=== PATIENT | female | born 1950 | race Caucasian/White ===

== ENCOUNTER 2023-09-12 12:09 | Outpatient (RCR) | payer MEDICARE, SELFPAY | END 2023-09-12 23:59 | disposition home or self-care (01) | LOC: RST 12:09 | PROVIDERS: ATTENDING PHYSICIAN Physical Medicine & Rehabilitation; FAMILY PHYSICIAN Family Medicine | DX: D32.0 Benign neoplasm of cerebral meninges (principal); Z73.6 Limitation of activities due to disability; R41.841 Cognitive communication deficit; R47.1 Dysarthria and anarthria | CPT/HCPCS: 97010; 97035; 97110; 97129; 97130; 97140 ==

== ENCOUNTER 2023-11-02 13:55 | Emergency (ER) | payer MEDICARE, SELFPAY ==
[2023-11-02 13:57] VITALS: BP 141/61
[2023-11-02 14:06] VITALS: BMI 32.4
--- NOTE | 2023-11-02 14:06 | ED.GENMED ---
History of Present Illness
General
Chief Complaint: Head Injury
Source: patient
Exam Limitations: none
Time Seen by Provider: 11/02/23 14:01
Travel History
Have you had any contact with someone who has COVID-19?: No
Do you have any symptoms of coronavirus? Fever > 100 degrees, chills, cough, shortness of breath, sore throat, loss of taste or smell, muscle aches, or headache?: No
History of Present Illness
History of Present Illness:
73-year-old female on Eliquis for atrial fibrillation presents for head injury. She hit her head on a desk. She denies neck pain. No loss of conscious. She notes a slight headache. No vision change. No other complaints at this time
Past History
Past History
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
ED Past Surgical History: Cardiac (Right carotid endarterectomy), Orthopedic (R and L total knee replacements. L and right hip replacement; microdiscectomy 2007, left arm repair, Laminectomy), Urological (Stent in Kidney) and Other (Meningioma
resection )
Patient has exhibited threatening behavior?: No
PSI?: No
Social History
Tobacco: Non-smoker
Alcohol: None
Drug: None
Personal:
Living: with family
Employment: Retired
Family History
Family History: Other
Phy Exam
Physical Exam
Physical Exam:
General: Well-appearing female no respiratory distress
HEENT: Normocephalic pupils equal round reactive to lightPupils equal round reactive to light extraocular's are intact no Mathew sign or raccoon eyes.
Neurologic: Normal gait alert and oriented no facial asymmetry conversing appropriately
Musculoskeletal exam: The spine is nontender to palpation
Course
Orders/Labs/Results
Orders:
Orders
11/02/23 14:06
CT Head W/o Iv Contrast Urgent
Comment:
Reason For Exam: head injury, on eliquis
Vital Signs
Initial and Last Documented VS:
Initial Vital Signs
Temp Pulse Resp BP Pulse Ox
97.8 F 50 18 141/61 98
11/02/23 13:57 11/02/23 13:57 11/02/23 13:57 11/02/23 13:57 11/02/23 13:57
Last Documented Vital Signs
Temp Pulse Resp BP Pulse Ox
97.8 F 83 18 149/73 98
11/02/23 13:57 11/02/23 15:33 11/02/23 15:33 11/02/23 15:33 11/02/23 15:33
MDM/Problems Addressed
Differential Diagnosis Includes:
Head injury on Eliquis. Patient urine for bleeding. Explained to her that this is a low likelihood and mechanism is not severe however given the headache will order CT of the head
*Critical Care Note
Total Time (30-74mins, 75-104mins- exclusive of procedures): Not Applicable
Update Note
Update Note:
CT of the head reviewed personally and reviewed by radiology. No acute finding noted. Patient reassured. Stable for discharge.
ED Attending Note
-
Portions of this chart may have been created with voice recognition software.� Occasional wrong word or��sound alike� substitutions may have occurred due to the inherent limitations of voice recognition software.
Discharge Plan
Departure
Patient Disposition: Home (Routine Discharge)
Date of Disposition: 11/02/23
Time of Disposition: 15:43
Patient with high blood pressure during this ER visit?: No
Discharge Problem:
Contusion
Instructions: Contusion (DC)
Prescriptions:
No Action
Eliquis 5 MG tablet
5 mg PO BID Qty: 0 0RF
gabapentin 400 mg capsule
900 mg PO DAILY@1999
metoclopramide HCl [Reglan] 5 mg tablet
5 mg PO TID PRN (Reason: nausea and vomiting) Qty: 45 0RF
atorvastatin 80 mg Tablet
80 mg PO HS
cyanocobalamin (vitamin B-12) 1,000 mcg Tablet
1,000 mcg PO DAILY
levothyroxine 200 mcg Tablet
200 mcg PO DAILY
magnesium oxide 250 mg magnesium Tablet
250 mg PO DAILY PRN (Reason: cramps)
sertraline 100 mg Tablet
150 mg PO DAILY
acetaminophen 325 MG tablet
650 mg PO Q6HPRN PRN (Reason: mild pain or temp >/= 100.4 F)
losartan 100 mg Tablet
100 mg PO NOON Qty: 30 0RF
metoprolol tartrate 25 mg Tablet
25 mg PO TID Qty: 90 0RF
amlodipine 5 mg tablet
5 mg PO DAILY Qty: 30 0RF
pantoprazole 20 mg Tablet,Delayed Release (Dr/Ec)
20 mg PO DAILY Qty: 30 0RF
multivitamin with folic acid [Tab-A-Darci] 400 mcg Tablet
1 tab PO DAILY Qty: 30 0RF
Referrals:
Baldo Ashley MD [Family Provider] -
Activity Restrictions/Additional Instructions:
You may use Tylenol if needed for pain. Return if needed otherwise follow-up with family doctor
Interventions
Interventions:
*Risk Screen - Suicide Last Done: 11/02/23 14:05
*General Assessment Last Done: 11/02/23 14:05
*Neglect/Abuse Screening Last Done: 11/02/23 14:05
*ED COVID-19 Vaccine History Last Done: 11/02/23 13:57
ED- Neurological Assessment Last Done: 11/02/23 14:07
ED-Skin Assessment Last Done: 11/02/23 14:07
[2023-11-02 15:33] VITALS: BP 149/73
== END 2023-11-02 16:22 | disposition home or self-care (01) ==
LOC: EMR 13:55
PROVIDERS: EMERGENCY PHYSICIAN Emergency Medicine; FAMILY PHYSICIAN Family Medicine
DX: S00.93XA Contusion of unspecified part of head, initial encounter (principal); W22.8XXA Striking against or struck by other objects, initial encounter; Z79.01 Long term (current) use of anticoagulants
CPT/HCPCS: 99284; 70450

== ENCOUNTER → 2023-11-27 11:11 | Outpatient (REF) | payer MEDICARE, SELFPAY | LOC: DHCBC HW 11:11 | PROVIDERS: ATTENDING PHYSICIAN Internal Medicine Cardiovascular Disease; FAMILY PHYSICIAN Family Medicine | DX: R42 Dizziness and giddiness (principal); I48.0 Paroxysmal atrial fibrillation; I10 Essential (primary) hypertension; R00.1 Bradycardia, unspecified | CPT/HCPCS: 93306 ==

== ENCOUNTER → 2023-11-30 13:07 | Outpatient (REF) | payer MEDICARE, SELFPAY | LOC: WDC 13:07 | PROVIDERS: ATTENDING PHYSICIAN Family Medicine | DX: Z12.31 Encounter for screening mammogram for malignant neoplasm of breast (principal) | CPT/HCPCS: 77063; 77067 ==

== ENCOUNTER → 2023-12-25 10:45 | Outpatient (REF) | payer MEDICARE, SELFPAY | LOC: PAVMRI 10:45 | PROVIDERS: ATTENDING PHYSICIAN Neurological Surgery; FAMILY PHYSICIAN Family Medicine | DX: D32.9 Benign neoplasm of meninges, unspecified (principal) | CPT/HCPCS: 70553; A9575 ==

== ENCOUNTER → 2024-01-16 09:27 | Outpatient (REF) | payer MEDICARE, SELFPAY | LOC: RCS 09:27 | PROVIDERS: ATTENDING PHYSICIAN Internal Medicine Cardiovascular Disease; FAMILY PHYSICIAN Family Medicine | DX: R42 Dizziness and giddiness (principal); I48.0 Paroxysmal atrial fibrillation; R00.1 Bradycardia, unspecified | CPT/HCPCS: 93225; 93226 ==

== ENCOUNTER 2024-03-10 15:01 | Outpatient (RCR) | payer MEDICARE, SELFPAY | END 2024-03-10 23:59 | disposition home or self-care (01) | LOC: RPT 15:01 | PROVIDERS: ATTENDING PHYSICIAN Family Medicine | DX: R29.898 Other symptoms and signs involving the musculoskeletal system (principal) | CPT/HCPCS: 97110; 97163 ==

== ENCOUNTER 2024-04-08 11:04 | Outpatient (RCR) | payer MEDICARE, SELFPAY | END 2024-04-08 23:59 | disposition home or self-care (01) | LOC: RPT 11:04 | PROVIDERS: ATTENDING PHYSICIAN Family Medicine | DX: R29.898 Other symptoms and signs involving the musculoskeletal system (principal); Z73.6 Limitation of activities due to disability | CPT/HCPCS: 97110; 97112 ==

== ENCOUNTER 2024-04-11 03:34 | Emergency (ER) | payer MEDICARE, SELFPAY ==
[2024-04-11 03:36] VITALS: BP 154/73
[2024-04-11 04:36] VITALS: BP 119/74
--- NOTE | 2024-04-11 04:41 | ED.GENMED ---
History of Present Illness
General
Chief Complaint: Fall
Source: patient
Exam Limitations: none
Time Seen by Provider: 04/11/24 04:41
Nursing documentation reviewed up to this point in time: agreed with
History of Present Illness
History of Present Illness:
Pleasant 73-year-old female presents after a fall. She fell and hit her head. She is on Eliquis for atrial fibrillation. She denies C-spine tenderness. Reports no other complaints. She states that she slipped and fell. Patient has a past
medical history significant for brain tumor. She had a partial craniotomy years ago. She does have a mild headache, which is no different from her typical headaches.
Past History
Past History
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
ED Past Surgical History: Cardiac (Right carotid endarterectomy), Orthopedic (R and L total knee replacements. L and right hip replacement; microdiscectomy 2007, left arm repair, Laminectomy), Urological (Stent in Kidney) and Other (Meningioma
resection )
Patient has exhibited threatening behavior?: No
PSI?: No
Social History
Tobacco: Non-smoker
Alcohol: None
Drug: None
Personal:
Living: with family
Employment: Retired
Family History
Family History: Other
Review of Systems
Review of Systems
Allergies reviewed?: Yes
Other source history: family
All Other Systems: ROS reviewed and negative except as documented in HPI and ROS
Neurological: Reports headache
Phy Exam
General Physical Exam
General Presentation: well appearing and no apparent distress
General Skin: warm and dry
General Habitus: normal
General Mental: alert and anxious
General Hydration: appears well hydrated
ENT Exam
ENT Exam: EOMI, pharynx normal, neck supple and normocephalic
Eye Exam
Eye Exam: PERRL, cornea clear and conjunctiva normal
Cardiovascular Exam
Cardiovascular Exam: irregularly irregular
Pulmonary Exam
Pulmonary Exam: lungs clear, no respiratory distress, no rales, no crackles, no rhonchi, no stridor, no wheezing and no cough
Gastrointestinal Exam
Gastrointestinal Exam: normal bowel sounds and non tender
Neurological Exam
Neurological Exam: alert, oriented x3, no motor deficits and speech normal
Musculoskeletal Exam
Musculoskeletal Exam: full ROM and no edema
Skin Exam
Skin Exam: normal color, warm/dry, no rash and no petechia
Psychiatric Exam
Psychiatric Exam: normal mood/affect
Course
Orders/Labs/Results
Orders:
Orders
04/11/24 03:[address] [CT Head W/o Iv Contrast] Urgent
Comment:
Reason For Exam: head injury
Vital Signs
Initial and Last Documented VS:
Initial Vital Signs
Temp Pulse Resp BP Pulse Ox
98.1 F 68 18 154/73 96
04/11/24 03:36 04/11/24 03:36 04/11/24 03:36 04/11/24 03:36 04/11/24 03:36
Last Documented Vital Signs
Temp Pulse Resp BP Pulse Ox
98.1 F 78 18 119/74 96
04/11/24 03:36 04/11/24 04:36 04/11/24 04:36 04/11/24 04:36 04/11/24 04:36
*Pulse Oximetry
Patient hypoxic: no
*Critical Care Note
Total Time (30-74mins, 75-104mins- exclusive of procedures): Not Applicable
Update Note
Update Note:
IMPRESSION:
No acute intracranial abnormality. No acute territorial infarct, hemorrhage, mass effect, or midline shift. 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
ED Attending Note
-
Portions of this chart may have been created with voice recognition software.� Occasional wrong word or��sound alike� substitutions may have occurred due to the inherent limitations of voice recognition software.
Discharge Plan
Departure
Patient Disposition: Home (Routine Discharge)
Date of Disposition: 04/11/24
Time of Disposition: 04:58
Patient with high blood pressure during this ER visit?: No
Condition: Good
Discharge Problem:
Head injury
Instructions: Head Injury in Adults (DC), Preventing falls in adults
Prescriptions:
No Action
Eliquis 5 MG tablet
5 mg PO BID Qty: 0 0RF
gabapentin 400 mg capsule
900 mg PO DAILY@1999
metoclopramide HCl [Reglan] 5 mg tablet
5 mg PO TID PRN (Reason: nausea and vomiting) Qty: 45 0RF
atorvastatin 80 mg Tablet
80 mg PO HS
cyanocobalamin (vitamin B-12) 1,000 mcg Tablet
1,000 mcg PO DAILY
levothyroxine 200 mcg Tablet
200 mcg PO DAILY
magnesium oxide 250 mg magnesium Tablet
250 mg PO DAILY PRN (Reason: cramps)
sertraline 100 mg Tablet
150 mg PO DAILY
acetaminophen 325 MG tablet
650 mg PO Q6HPRN PRN (Reason: mild pain or temp >/= 100.4 F)
losartan 100 mg Tablet
100 mg PO NOON Qty: 30 0RF
metoprolol tartrate 25 mg Tablet
25 mg PO TID Qty: 90 0RF
amlodipine 5 mg tablet
5 mg PO DAILY Qty: 30 0RF
pantoprazole 20 mg Tablet,Delayed Release (Dr/Ec)
20 mg PO DAILY Qty: 30 0RF
multivitamin with folic acid [Tab-A-Darci] 400 mcg Tablet
1 tab PO DAILY Qty: 30 0RF
Activity Restrictions/Additional Instructions:
It was a pleasure meeting you and taking part in your care. We hope for your continued healing and wellness.
Please read discharge instructions in their entirety. However, they are for general education and may not describe your exact diagnosis at discharge. Information on your ER visit and medical conditions were discussed with you along with appropriate
follow up information...
If indicated, please take your medications as instructed and indicated on discharge paperwork.
Please schedule a follow up appointment as directed. Call to schedule an appointment
Please return to the emergency department with ANY change in, persisting, or worsening of symptoms. If any of your symptoms do not improve, or persist, or become more severe within 6-12 hours, please return to the emergency department for further
care.
Please return to the emergency department if you develop a headache, neck pain/stiffness, fever greater than 100.4F, chest pain, shortness of breath, persistent nausea, vomiting, slurred speech, difficulty walking, numbness/tingling, weakness, signs
of infection or any other symptoms that are worrisome to you.
If you have any questions or concerns please do not hesitate to call the Hospital at or E-mail me directly at [email or web address]
Interventions
Interventions:
*General Assessment Last Done: 04/11/24 04:38
*Neglect/Abuse Screening Last Done: 04/11/24 03:39
*ED COVID-19 Vaccine History Last Done: 04/11/24 03:39
ED- Neurological Assessment Last Done: 04/11/24 04:41
ED-Skin Assessment Last Done: 04/11/24 04:41
Discharge Date and Time
Print Language: [place]
== END 2024-04-11 05:20 | disposition home or self-care (01) ==
LOC: EMR 03:34
PROVIDERS: EMERGENCY PHYSICIAN Student in an Organized Health Care Education/Training Program; FAMILY PHYSICIAN Family Medicine
DX: S09.90XA Unspecified injury of head, initial encounter (principal); W01.10XA Fall on same level from slipping, tripping and stumbling with subsequent striking against unspecified object, initial encounter; I48.91 Unspecified atrial fibrillation; Z79.01 Long term (current) use of anticoagulants
CPT/HCPCS: 99284; 70450

== ENCOUNTER 2024-05-09 12:44 | Outpatient (RCR) | payer MEDICARE, SELFPAY | END 2024-05-09 23:59 | disposition home or self-care (01) | LOC: RPT 12:44 | PROVIDERS: ATTENDING PHYSICIAN Family Medicine | DX: R29.898 Other symptoms and signs involving the musculoskeletal system (principal); Z73.6 Limitation of activities due to disability; M62.81 Muscle weakness (generalized) | CPT/HCPCS: 97110; 97112 ==

== ENCOUNTER 2024-05-19 12:06 | Outpatient (RCR) | payer MEDICARE, SELFPAY | END 2024-05-19 15:09 | disposition home or self-care (01) | LOC: RPT 12:06 | PROVIDERS: ATTENDING PHYSICIAN Family Medicine | DX: R29.898 Other symptoms and signs involving the musculoskeletal system (principal); Z73.6 Limitation of activities due to disability | CPT/HCPCS: 97110; 97112 ==

== ENCOUNTER → 2024-07-24 20:11 | Outpatient (REF) | payer MEDICARE, SELFPAY | LOC: MRI 20:11 | PROVIDERS: ATTENDING PHYSICIAN Neurological Surgery; FAMILY PHYSICIAN Family Medicine | DX: D32.9 Benign neoplasm of meninges, unspecified (principal) | CPT/HCPCS: 70553; A9575 ==

== ENCOUNTER → 2024-09-04 19:28 | Outpatient (REF) | payer MEDICARE, SELFPAY | LOC: MRI 19:28 | PROVIDERS: ATTENDING PHYSICIAN Orthopaedic Surgery Hand Surgery; FAMILY PHYSICIAN Family Medicine | DX: M25.531 Pain in right wrist (principal) | CPT/HCPCS: 73221 ==

== ENCOUNTER 2024-10-03 08:31 | Outpatient (RCR) | payer MEDICARE, SELFPAY | END 2024-10-03 23:59 | disposition home or self-care (01) | LOC: ROT 08:31 | PROVIDERS: ATTENDING PHYSICIAN Orthopaedic Surgery Hand Surgery; FAMILY PHYSICIAN Family Medicine | DX: M25.531 Pain in right wrist (principal); Z73.6 Limitation of activities due to disability | CPT/HCPCS: 97010; 97166; 97535 ==

== ENCOUNTER → 2024-10-29 10:58 | Outpatient (REF) | payer MEDICARE, SELFPAY | LOC: RCS 10:58 | PROVIDERS: ATTENDING PHYSICIAN Internal Medicine Cardiovascular Disease; FAMILY PHYSICIAN Family Medicine | DX: I10 Essential (primary) hypertension (principal); I48.0 Paroxysmal atrial fibrillation; I34.0 Nonrheumatic mitral (valve) insufficiency | CPT/HCPCS: 93306 ==

== ENCOUNTER 2024-11-07 11:48 | Outpatient (RCR) | payer MEDICARE, SELFPAY | END 2024-11-07 23:59 | disposition home or self-care (01) | LOC: ROT 11:48 | PROVIDERS: ATTENDING PHYSICIAN Orthopaedic Surgery Hand Surgery; FAMILY PHYSICIAN Family Medicine | DX: M25.531 Pain in right wrist (principal); M62.81 Muscle weakness (generalized); M79.601 Pain in right arm; R26.89 Other abnormalities of gait and mobility; Z73.6 Limitation of activities due to disability | CPT/HCPCS: 97010; 97022; 97110; 97140; 97535 ==

== ENCOUNTER → 2024-12-01 10:49 | Outpatient (REF) | payer MEDICARE, SELFPAY | LOC: WDC 10:49 | PROVIDERS: ATTENDING PHYSICIAN Family Medicine | DX: Z12.31 Encounter for screening mammogram for malignant neoplasm of breast (principal) | CPT/HCPCS: 77063; 77067 ==

== ENCOUNTER → 2024-12-12 10:34 | Outpatient (REF) | payer MEDICARE, SELFPAY | LOC: RAD 10:34 | PROVIDERS: ATTENDING PHYSICIAN Surgery Vascular Surgery; FAMILY PHYSICIAN Family Medicine; OTHER PHYSICIAN Specialist | DX: I70.1 Atherosclerosis of renal artery (principal) | CPT/HCPCS: 93975 ==

== ENCOUNTER → 2025-01-08 14:26 | Outpatient (REF) | payer MEDICARE, SELFPAY | LOC: PAVMRI 14:26 | PROVIDERS: ATTENDING PHYSICIAN Neurological Surgery; FAMILY PHYSICIAN Family Medicine | DX: D32.9 Benign neoplasm of meninges, unspecified (principal) | CPT/HCPCS: 70553; A9575 ==

== ENCOUNTER → 2025-02-15 11:09 | Outpatient (REF) | payer MEDICARE, SELFPAY | LOC: PAVMRI 11:09 | PROVIDERS: ATTENDING PHYSICIAN Neurological Surgery; FAMILY PHYSICIAN Family Medicine | DX: M47.816 Spondylosis without myelopathy or radiculopathy, lumbar region (principal) | CPT/HCPCS: 72148 ==

== ENCOUNTER 2025-03-10 10:06 | Outpatient (RCR) | payer MEDICARE, SELFPAY | END 2025-03-10 23:59 | disposition home or self-care (01) | LOC: RPT 10:06 | PROVIDERS: ATTENDING PHYSICIAN Family Medicine | DX: M21.372 Foot drop, left foot (principal); R26.2 Difficulty in walking, not elsewhere classified; R26.89 Other abnormalities of gait and mobility; Z73.6 Limitation of activities due to disability | CPT/HCPCS: 97110; 97162; 97535 ==

== ENCOUNTER 2025-03-18 10:08 | Outpatient (RCR) | payer MEDICARE, SELFPAY | END 2025-03-18 23:59 | disposition home or self-care (01) | LOC: RPT 10:08 | PROVIDERS: ATTENDING PHYSICIAN Family Medicine | DX: M21.372 Foot drop, left foot (principal); R26.2 Difficulty in walking, not elsewhere classified; R26.89 Other abnormalities of gait and mobility; Z73.6 Limitation of activities due to disability | CPT/HCPCS: 97110 ==

== ENCOUNTER 2025-04-14 19:57 | Emergency (ER) | payer MEDICARE, SELFPAY ==
[2025-04-14 20:01] VITALS: BP 145/74
--- NOTE | 2025-04-14 21:10 | ED.GENMED ---
History of Present Illness
General
Chief Complaint: Fall
Source: patient
Exam Limitations: none
Time Seen by Provider: 04/14/25 20:42
Nursing documentation reviewed up to this point in time: agreed with
History of Present Illness
History of Present Illness:
74-year-old female with history of A-fib on Eliquis, HTN, HLD, hypothyroid states she stumbled in her living room and fell striking her left eyebrow on linoleum floor. There was no loss of consciousness. She does have a small bump above the left
eyebrow. She states she has a 3/10 headache. No change in her vision, denies neck pain, nausea or vomiting. She denies any other injury from the fall.
Past History
Past History
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
ED Past Surgical History: Cardiac (Right carotid endarterectomy), Orthopedic (R and L total knee replacements. L and right hip replacement; microdiscectomy 2007, left arm repair, Laminectomy), Urological (Stent in Kidney) and Other (Meningioma
resection )
Patient has exhibited threatening behavior?: No
PSI?: No
Social History
Tobacco: Non-smoker
Alcohol: None
Drug: None
Personal:
Living: with family
Employment: Retired
Family History
Family History: Other
Review of Systems
Review of Systems
Allergies reviewed?: Yes
All Other Systems: ROS reviewed and negative except as documented in HPI and ROS
Phy Exam
Physical Exam
Physical Exam:
GENERAL: No acute distress. A&Ox3.
CONSTITUTIONAL: Afebrile.
Head: Mild contusion above left eye brow
EYES: clear, conjunctivae normal
ENMT: moist mucus membranes, Pharynx nl
RESPIRATORY: Regular respirations, nonlabored, lungs clear.
CARDIOVASCULAR: Regular rate and rhythm, no murmurs, no rubs.
GI: Soft, nontender, normal BS
MUSCULOSKELETAL: No spinal bony tenderness. Moves with ease. Well perfused.
SKIN: Warm, dry, pink
PSYCH: Normal mood and affect. Well kept, interactive and appropriate
NEUROLOGIC: Awake, alert and oriented. No focal neurological deficits
Course
Orders/Labs/Results
Orders:
Orders
04/14/25 20:03
CT Head W/o Iv Contrast Urgent
Comment:
Reason For Exam: fall, Head strike on Eliquis
04/14/25 21:11
Acetaminophen [Tylenol] 650 mg PO NOW STA
Vital Signs
Initial and Last Documented VS:
Initial Vital Signs
Temp Pulse Resp BP Pulse Ox
98.6 F 83 18 145/74 95
04/14/25 20:01 04/14/25 20:01 04/14/25 20:01 04/14/25 20:01 04/14/25 20:01
Last Documented Vital Signs
Temp Pulse Resp BP Pulse Ox
98.6 F 83 18 145/74 95
04/14/25 20:01 04/14/25 20:01 04/14/25 20:01 04/14/25 20:01 04/14/25 21:11
MDM/Problems Addressed
Differential Diagnosis Includes:
Concussion, brain bleed
MDM/Problems Addressed:
74-year-old female with history of A-fib on Eliquis, HTN, HLD, hypothyroid, brain tumor with craniotomy states she stumbled in her living room and fell striking her left eyebrow on linoleum floor. There was no loss of consciousness. She does have
a small bump above the left eyebrow. She states she has a 3/10 headache. No change in her vision, denies neck pain, nausea or vomiting. She denies any other injury from the fall.
Neuro exam is unremarkable, NAD
10:15 PM:
Head CT reviewed, radiology report reviewed: No acute abnormality
Patient stable for discharge
*Pulse Oximetry
SaO2: 95
Oxygen Mode of Delivery: Room air
Patient hypoxic: not evaluated
*Critical Care Note
Total Time (30-74mins, 75-104mins- exclusive of procedures): Not Applicable
ED Attending Note
-
Portions of this chart may have been created with voice recognition software.� Occasional wrong word or��sound alike� substitutions may have occurred due to the inherent limitations of voice recognition software.
Discharge Plan
Departure
Patient Disposition: Home (Routine Discharge)
Date of Disposition: 04/14/25
Time of Disposition: 22:24
Patient with high blood pressure during this ER visit?: No
Condition: Good
Discharge Problem:
Head injury, Fall from slip, trip, or stumble, Contusion of left eyebrow
Instructions: Head Injury in Adults (DC), Contusion (DC)
Prescriptions:
No Action
Eliquis 5 MG tablet
5 mg PO BID Qty: 0 0RF
gabapentin 400 mg capsule
900 mg PO DAILY@1999
metoclopramide HCl [Reglan] 5 mg tablet
5 mg PO TID PRN (Reason: nausea and vomiting) Qty: 45 0RF
atorvastatin 80 mg Tablet
80 mg PO HS
cyanocobalamin (vitamin B-12) 1,000 mcg Tablet
1,000 mcg PO DAILY
levothyroxine 200 mcg Tablet
200 mcg PO DAILY
magnesium oxide 250 mg magnesium Tablet
250 mg PO DAILY PRN (Reason: cramps)
sertraline 100 mg Tablet
150 mg PO DAILY
acetaminophen 325 MG tablet
650 mg PO Q6HPRN PRN (Reason: mild pain or temp >/= 100.4 F)
losartan 100 mg Tablet
100 mg PO NOON Qty: 30 0RF
metoprolol tartrate 25 mg Tablet
25 mg PO TID Qty: 90 0RF
amlodipine 5 mg tablet
5 mg PO DAILY Qty: 30 0RF
pantoprazole 20 mg Tablet,Delayed Release (Dr/Ec)
20 mg PO DAILY Qty: 30 0RF
multivitamin with folic acid [Tab-A-Darci] 400 mcg Tablet
1 tab PO DAILY Qty: 30 0RF
Referrals:
Baldo Ashley MD [Family Provider, Family Practice] - As needed
UNKNOWN - PT DOES,NOT KNOW [Unknown Provider]
Activity Restrictions/Additional Instructions:
As we discussed, your head CT shows nothing worrisome.
Interventions
Interventions:
*Risk Screen - Suicide Last Done: 04/14/25 20:00
*General Assessment Last Done: 04/14/25 20:01
*Neglect/Abuse Screening Last Done: 04/14/25 20:01
*ED- Fall Risk Assessment Last Done: 04/14/25 22:35
*ED COVID-19 Vaccine History Last Done: 04/14/25 22:35
*Nursing Disposition Last Done: 04/14/25 22:35
ED-Musculoskeletal Assessment Last Done: 04/14/25 22:35
ED- Neurological Assessment Last Done: 04/14/25 22:35
ED-Skin Assessment Last Done: 04/14/25 22:35
Discharge Date and Time
Discharge Date/Time: 04/14/25 22:36
Print Language: [place]ET[place]ESE
[2025-04-14] MEDS: TYLENOL 650 MG PO (21:23)
== END 2025-04-14 22:36 | disposition home or self-care (01) ==
LOC: EMR 19:57
PROVIDERS: EMERGENCY PHYSICIAN Emergency Medicine; FAMILY PHYSICIAN Family Medicine
DX: S09.90XA Unspecified injury of head, initial encounter (principal); S00.12XA Contusion of left eyelid and periocular area, initial encounter; W01.0XXA Fall on same level from slipping, tripping and stumbling without subsequent striking against object, initial encounter; Y92.018 Other place in single-family (private) house as the place of occurrence of the external cause; I48.91 Unspecified atrial fibrillation; I10 Essential (primary) hypertension; E78.00 Pure hypercholesterolemia, unspecified; E03.9 Hypothyroidism, unspecified; Z79.01 Long term (current) use of anticoagulants; Z86.011 Personal history of benign neoplasm of the brain; Z96.641 Presence of right artificial hip joint; Z96.653 Presence of artificial knee joint, bilateral
CPT/HCPCS: 99284; 70450

== ENCOUNTER → 2025-08-03 11:29 | Outpatient (REF) | payer MEDICARE, SELFPAY | LOC: RAD 11:29 | PROVIDERS: ATTENDING PHYSICIAN Internal Medicine Cardiovascular Disease; FAMILY PHYSICIAN Family Medicine | DX: I48.19 Other persistent atrial fibrillation (principal) | CPT/HCPCS: 75572; Q9967 ==